=== PATIENT | female | born 1945 | race Caucasian/White ===

== ENCOUNTER 2018-03-14 08:48 | Outpatient (CLI) | payer MEDICARE, OTHER | END 2018-03-14 08:49 | disposition home or self-care (01) | LOC: BICMAMMO 08:48 | PROVIDERS: ATTEND Obstetrics & Gynecology | DX: Z12.31 Encounter for screening mammogram for malignant neoplasm of breast (principal); Z79.890 Hormone replacement therapy; M85.89 Other specified disorders of bone density and structure, multiple sites; R92.1 Mammographic calcification found on diagnostic imaging of breast; Z80.3 Family history of malignant neoplasm of breast | CPT/HCPCS: 77063; 77067; 77080 ==

== ENCOUNTER 2019-03-19 12:51 | Outpatient (CLI) | payer MEDICARE, OTHER ==
--- NOTE | 2019-03-19 14:15 | MMO ---
Bilateral MAMMO Bilat Screen [facility]. CLINICAL HISTORY: Patient is 73 years old and is seen for screening. The patient has no personal history of cancer. VIEWS: The views performed were: bilateral craniocaudal with tomosynthesis and bilateral mediolateral oblique with tomosynthesis. FILMS COMPARED: The present examination has been compared to prior imaging studies performed at [facility] on 01/29/2015, 02/17/2016, 03/07/2017 and 03/14/2018. MAMMOGRAM FINDINGS: There are scattered fibroglandular densities. There are no suspicious masses, suspicious calcifications, or new areas of architectural distortion. IMPRESSION: THERE IS NO MAMMOGRAPHIC EVIDENCE OF MALIGNANCY. A ROUTINE FOLLOW-UP MAMMOGRAM IN 1 YEAR IS RECOMMENDED. THE RESULTS OF THIS EXAM WERE SENT TO THE PATIENT. ACR BI-RADS Category 1 - Negative MAMMOGRAPHY NOTE: 1. A negative mammogram report should not delay a biopsy if a dominant of clinically suspicious mass is present. 2. Approximately 10% to 15% of breast cancers are not detected by mammography. 3. Adenosis and dense breasts may obscure an underlying neoplasm.
== END 2019-03-19 12:52 | disposition home or self-care (01) ==
LOC: BICMAMMO 12:51
PROVIDERS: ATTEND Obstetrics & Gynecology
DX: Z12.31 Encounter for screening mammogram for malignant neoplasm of breast (principal)
CPT/HCPCS: 77063; 77067

== ENCOUNTER 2020-03-25 13:19 | Outpatient (CLI) | payer MEDICARE, OTHER ==
--- NOTE | 2020-03-25 13:47 | MMO ---
Bilateral MAMMO Bilat Screen [facility]. CLINICAL HISTORY: Patient is 74 years old and is seen for screening. The patient has no family history of breast cancer. The patient has no personal history of cancer. VIEWS: The views performed were: bilateral craniocaudal with tomosynthesis; bilateral mediolateral oblique with tomosynthesis; and bilateral exaggerated craniocaudal. FILMS COMPARED: The present examination has been compared to prior imaging studies performed at [facility] on 02/17/2016, 03/07/2017, 03/14/2018 and 03/19/2019. This study has been interpreted with the assistance of computer-aided detection. MAMMOGRAM FINDINGS: There are scattered fibroglandular densities. There is an asymmetry seen in the CC view only seen in the inner region of the left breast. In the right breast, there are no suspicious masses, calcifications or areas of architectural distortion. IMPRESSION: ASYMMETRY IN THE LEFT BREAST REQUIRES ADDITIONAL EVALUATION. RECOMMEND DIAGNOSTIC MAMMOGRAM. ULTRASOUND MAY ALSO PROVE USEFUL AT RECALL. THE RESULTS OF THIS EXAM WERE SENT TO THE PATIENT. ACR BI-RADS Category 0 - Incomplete: Need additional imaging evaluation. [facility] will notify the patient of the need for additional imaging services. MAMMOGRAPHY NOTE: 1. A negative mammogram report should not delay a biopsy if a dominant of clinically suspicious mass is present. 2. Approximately 10% to 15% of breast cancers are not detected by mammography. 3. Adenosis and dense breasts may obscure an underlying neoplasm. Reported by: JOSE LUIS GAMEZ MD Electonically Signed: [id number]
== END 2020-03-25 13:20 | disposition home or self-care (01) ==
LOC: BICMAMMO 13:19
PROVIDERS: ATTEND Obstetrics & Gynecology
DX: Z12.31 Encounter for screening mammogram for malignant neoplasm of breast (principal); N64.89 Other specified disorders of breast
CPT/HCPCS: 77063; 77067

== ENCOUNTER 2020-03-28 14:34 | Outpatient (CLI) | payer MEDICARE, OTHER ==
--- NOTE | 2020-03-28 16:12 | MMO ---
Left Breast MAMMO Unilat Diag [facility]. CLINICAL HISTORY: Patient is 74 years old and is seen for additional evaluation requested at current screening. The patient has no family history of breast cancer. The patient has no personal history of cancer. VIEWS: The views performed were: left craniocaudal spot compression with tomosynthesis; left mediolateral oblique spot compression with tomosynthesis; and left mediolateral with tomosynthesis. FILMS COMPARED: The present examination has been compared to prior imaging studies performed at [facility] on 03/14/2018, 03/19/2019, 03/25/2020 and 03/28/2020. This study has been interpreted with the assistance of computer-aided detection. MAMMOGRAM FINDINGS: There are scattered fibroglandular densities. There is a mass measuring 4 millimeters seen in the middle upper-inner region of the left breast. A definite ultrasound correlate was not seen. Please refer to ultrasound report. IMPRESSION: MASS IN THE LEFT BREAST REQUIRES ADDITIONAL EVALUATION. BREAST MRI IS RECOMMENDED. THE RESULTS OF THIS EXAM WERE SENT TO THE PATIENT. ACR BI-RADS Category 0 - Incomplete: Need additional imaging evaluation. [facility] will notify the patient of the need for additional imaging services. MAMMOGRAPHY NOTE: 1. A negative mammogram report should not delay a biopsy if a dominant of clinically suspicious mass is present. 2. Approximately 10% to 15% of breast cancers are not detected by mammography. 3. Adenosis and dense breasts may obscure an underlying neoplasm. Reported by: RUTH OLIVO MD Electonically Signed: [id number]
--- NOTE | 2020-03-28 20:48 | ULT ---
LEFT BREAST ULTRASOUND: 03/28/20 HISTORY: 4 mm nodular density seen left breast in the inner and perhaps slightly upper left breast. Difficult to localize on the ML or MLO projections but lesion has slightly ill-defined borders and of increased density on the CC view. Real time imaging of the left breast was performed initially at the 6 o'clock position left breast. A 6 x 7 mm cyst was identified. I was not satisfied with this being a definite correlate to the mammo graphic finding and this was discussed with the patient. I felt that a cyst aspiration would be neede d to confirm that the two densities are the same. Later as I was able to re-review the mammogram imag es, I actually found a correlate to this cyst on the mammogram and therefore a cyst aspiration is not required as this density is not the density seen on mammogram. Real time imaging of the remainder of the inner aspect of the breast by myself failed to show any def inite ultrasound correlate to the mammographic finding. The mammographic finding had somewhat worriso me features on the CC projection, although much more equivocal on the ML or MLO views. I still feel t hat a six month follow-up is not adequate and recommend breast MRI. IMPRESSION: 1. BIRADS 0: Incomplete: Need Additional Imaging Evaluation and/or Prior Mammograms for Compari son. Further evaluation with MRI is recommended of the left breast finding. 2. As discussed above, initially I recommended cyst aspiration to the patient but after re-revie wing the films, this will not be needed. We will attempt to contact the patient as the department is closed today.
== END 2020-03-28 14:35 | disposition home or self-care (01) ==
LOC: BICMAMMO 14:34
PROVIDERS: ATTEND Obstetrics & Gynecology
DX: R92.8 Other abnormal and inconclusive findings on diagnostic imaging of breast (principal); N63.20 Unspecified lump in the left breast, unspecified quadrant
CPT/HCPCS: 76642; 77065; G0279

== ENCOUNTER 2020-04-09 09:35 | Outpatient (CLI) | payer MEDICARE, OTHER ==
--- NOTE | 2020-04-09 13:06 | MRI ---
EXAM: MRI of the breasts without and with contrast HISTORY: Lump in the left breast. Asymmetry in the upper inner left breast on mammography COMPARISON : Mammogram and ultrasound 03/28/2020; mammograms 03/25/2020, 06/19/2019, 03/14/2018, 03/07/2017, 02/17/2016, 01/29/2015 TECHNIQUE: Multiplanar multisequence MR images were obtained of the breasts without and with IV contr ast. 3-D MIP reformats and contrast enhancement curves were generated on a [employer] workstation. FINDINGS: Scattered fibroglandular breast tissue is seen. Minimal background parenchymal enhancement is seen. There is a 3 mm well-circumscribed area of type I gradual enhancement in the upper aspect of the left breast. This is approximately 6.8 cm from the nipple and is much more posterior in the breast than the asymmetry was seen on mammography. No suspicious areas of enhancement are seen in either breast. No axillary adenopathy is seen. No internal mammary lymph nodes are identified. The visualized liver is unremarkable. The visualized bones are unremarkable. IMPRESSION: No suspicious enhancement is seen in the left breast in the region that the asymmetry was seen on binh mography. In addition, when reviewing the mammograms, this asymmetry has been present dating back to 2014. BI-RADS Category 2-benign findings. Annual screening mammography is recommended.
== END 2020-04-09 09:36 | disposition home or self-care (01) ==
LOC: BICMRI 09:35
PROVIDERS: ATTEND Obstetrics & Gynecology
DX: R92.8 Other abnormal and inconclusive findings on diagnostic imaging of breast (principal); N63.20 Unspecified lump in the left breast, unspecified quadrant; N64.89 Other specified disorders of breast
CPT/HCPCS: 82565; C8908

== ENCOUNTER 2020-05-12 07:16 | Outpatient (CLI) | payer MEDICARE, OTHER ==
[2020-05-12 14:11] LABS: #Eosinphils 0.2 thou/uL (0.0-0.7); #Lymphocytes 1.5 thou/uL (1.20-3.40); #Monocytes 0.3 thou/uL (0.11-0.59); #Neutrophils 3.3 thou/uL (1.40-6.50); %Basophils 0.9 % (0.0-1.0); %Eosinophils 2.9 % (0.0-10.0); %Lymphocytes 27.8 % (21.0-51.0); %Monocytes 6.4 % (0.0-10.0); Hemoglobin 13.7 g/dL (12.0-16.0); Mean Corpuscular HGB CONC 32.7 g/dL (32.0-36.0); Mean Corpuscular Hemoglobin 31.1 pg (27.0-31.0); Mean Corpuscular Volume 95.3 fL (78.0-98.0); Mean Platelet Volume 9.4 fL (7.4-10.4); Platelet Count 200 thou/uL (130-400); RBC Distribution Width 11.4 % (11.5-14.5); Red Blood Cell (RBC) Count 4.39 mill/uL (4.20-5.40); White Blood Cell (WBC) Count 5.3 thou/uL (4.8-10.8)
[2020-05-13 12:06] LABS: SARS-CoV-2 MS2 Positive; SARS-CoV-2 N Gene Negative; SARS-CoV-2 S Gene Negative; SARS-CoV-2 by NAA Not Detected (NotDetected); SARS-CoV-2 orf1ab Negative
== END 2020-05-12 07:17 | disposition home or self-care (01) ==
LOC: LABBT 07:16
PROVIDERS: ATTEND Surgery
DX: Z01.818 Encounter for other preprocedural examination (principal); Z11.59 Encounter for screening for other viral diseases; N63.20 Unspecified lump in the left breast, unspecified quadrant
CPT/HCPCS: 85025; 93005; U0003; 87635; 93010

== ENCOUNTER 2020-05-16 06:53 | Day surgery (SDC) | payer MEDICARE, OTHER ==
[2020-05-09 15:44] VITALS: BMI 21.5
[2020-05-16 08:52] LABS: Anion Gap 10 mmol/L (10-20); BUN (Urea Nitrogen) 14 mg/dL (9.8-20.1); Calc. Creatinine Clearance 50 mL/min (70-130); Calcium 8.9 mg/dL (7.8-10.44); Carbon Dioxide 28 mmol/L (23-31); Chloride 106 mmol/L (98-107); Estimated GFR-MDRD 71; Glucose 92 mg/dL (83-110); Potassium 3.8 mmol/L (3.5-5.1); Sodium 140 mmol/L (136-145)
[2020-05-16] MEDS ORDERED: EPHEDRINE 25 MG/5 ML SYRINGE ONE (08:57)
[2020-05-16] MEDS ORDERED: Ondansetron PF 4 MG/2 ML Vial ONE (08:57)
[2020-05-16] MEDS ORDERED: PROPOFOL 200 MG/20 ML VIAL ONE (08:57)
[2020-05-16] MEDS ORDERED: Lidocaine 1% PF 5 ML VIAL ONE (08:57)
--- NOTE | 2020-05-16 09:07 | MMO ---
Needle localization left breast mass mammographic guided HISTORY: Left breast mass. FINDINGS: After explaining the procedure and answering all questions, the small hyperdense mass at th e superior medial aspect of the left breast was visualized. Sterile technique, buffered local anesthesia, mammographic guidance, and a superior approach were use d to carefully advance a 19-gauge [place] needle to the mass. Guidewire deployed and needle secured. Final images were obtained and marked, showing the tip of the needle immediately deep to the mass. Patient tolerated the procedure well and was transferred to day surgery in good condition. IMPRESSION : Technically successful needle localization left breast mass.
[2020-05-16] MEDS ORDERED: Fentanyl 100 MCG/2 ML VIAL ONE ×2 (09:52→11:25)
[2020-05-16] MEDS ORDERED: Bupivacaine 0.25% HCL 30 ML VIAL ONE (10:06)
[2020-05-16] MEDS ORDERED: Lidocaine 1% w/Epinephrine 1:100K 20 ML VIAL ONE (10:06)
[2020-05-16] MEDS ORDERED: Levofloxacin 500 mg/D5W 100 ml Premix Bag ONE (11:34)
--- NOTE | 2020-05-19 11:04 | OP ---
DATE OF PROCEDURE: 05/16/2020 PREOPERATIVE DIAGNOSIS: Left breast mass, not amenable to stereotactic biopsy. POSTOPERATIVE DIAGNOSIS: Left breast mass, not amenable to stereotactic biopsy. PROCEDURE PERFORMED: Left breast mass excision after needle localization. ANESTHESIA: General. ESTIMATED BLOOD LOSS: Minimal. COMPLICATIONS: None. SPECIMEN: Left breast mass, marked with 2 short superior, 1 long lateral. Sent to Path for final diagnosis. TECHNIQUE: The patient had undergone preop placement of needle localization wire to the area of abnormality in the left breast. Left breast was then prepped and draped in a sterile fashion. Incision was made near entrance of the needle localization wire. Flaps were raised superior medially and inferior laterally around the end of the needle localization wire. The specimen was marked and sent to specimen x-ray, which revealed the area to be in the specimen. It was then sent for final pathology. The wound was irrigated. Local anesthetic was applied. The wound was closed using 3-0 Vicryl, 4-0 Monocryl, and Dermabond. The patient was sent to Recovery in stable condition. All instrument counts, needle counts, and lap counts were correct. Job ID: [id number]
== END 2020-05-16 13:45 | disposition home or self-care (01) ==
LOC: SDC 06:53
PROVIDERS: ATTEND Surgery
PROC: 0HBU0ZZ Excision of Left Breast, Open Approach (ICD-10-PCS; principal; 2020-05-16)
DX: C50.212 Malignant neoplasm of upper-inner quadrant of left female breast (principal); M81.0 Age-related osteoporosis without current pathological fracture; D47.2 Monoclonal gammopathy; J30.9 Allergic rhinitis, unspecified; Z79.82 Long term (current) use of aspirin; Z79.899 Other long term (current) drug therapy; Z88.0 Allergy status to penicillin
CPT/HCPCS: 19281; 36415; 76098; 80048; 88307; 88341; 88342; J1956; J2405; J2704; J3010; S0020

== ENCOUNTER 2020-06-06 07:49 | Outpatient (CLI) | payer MEDICARE, OTHER ==
[2020-06-06 11:45] LABS: #Basophils 0.1 thou/uL (0.0-0.2); #Eosinphils 0.2 thou/uL (0.0-0.7); #Lymphocytes 1.3 thou/uL (1.20-3.40); #Monocytes 0.3 thou/uL (0.11-0.59); #Neutrophils 2.5 thou/uL (1.40-6.50); %Basophils 1.6 % (0.0-1.0); %Eosinophils 4.3 % (0.0-10.0); %Lymphocytes 29.3 % (21.0-51.0); %Monocytes 7.6 % (0.0-10.0); %Neutrophils 57.2 % (42.0-75.0); Hemoglobin 13.1 g/dL (12.0-16.0); Mean Corpuscular HGB CONC 33.3 g/dL (32.0-36.0); Mean Corpuscular Hemoglobin 31.2 pg (27.0-31.0); Mean Corpuscular Volume 93.6 fL (78.0-98.0); Mean Platelet Volume 9.4 fL (7.4-10.4); Platelet Count 202 thou/uL (130-400); RBC Distribution Width 11.1 % (11.5-14.5); White Blood Cell (WBC) Count 4.3 thou/uL (4.8-10.8)
[2020-06-06 13:02] LABS: Anion Gap 14 mmol/L (10-20); BUN (Urea Nitrogen) 15 mg/dL (9.8-20.1); Calc. Creatinine Clearance 0 mL/min (70-130); Calcium 9.2 mg/dL (7.8-10.44); Carbon Dioxide 26 mmol/L (23-31); Chloride 103 mmol/L (98-107); Estimated GFR-MDRD 72; Glucose 85 mg/dL (83-110); Sodium 139 mmol/L (136-145)
[2020-06-06 17:04] LABS: SARS-CoV-2 MS2 Positive; SARS-CoV-2 N Gene Negative; SARS-CoV-2 S Gene Negative; SARS-CoV-2 by NAA Not Detected (NotDetected); SARS-CoV-2 orf1ab Negative
== END 2020-06-06 07:50 | disposition home or self-care (01) ==
LOC: LABBT 07:49 → EDSTATUS 15:09
PROVIDERS: ATTEND Surgery
DX: Z01.812 Encounter for preprocedural laboratory examination (principal); N63.20 Unspecified lump in the left breast, unspecified quadrant; Z20.828 Contact with and (suspected) exposure to other viral communicable diseases
CPT/HCPCS: 80048; 85025; U0003; 87635

== ENCOUNTER 2020-06-11 07:30 | Day surgery (SDC) | payer MEDICARE, OTHER ==
[2020-06-05 11:46] VITALS: BMI 20.6
--- NOTE | 2020-06-11 09:12 | NM ---
LYMPHOSCINTIGRAPHY LEFT BREAST: DATE: 06/11/2020 : 75-year-old female with malignant neoplasm of unspecified site of leftfemale breast. TECHNIQUE: Signed informed consent obtained. Alcohol swabbing four-quadrant left periareolar distribution. Using 30-gauge needle, buffered lidocaine was applied to those 4 quadrants. Next, using 4 separate 30-gauge needles in 4 separate tuberculin syringes, a total of 0.4 mCi of technetium 99m sulfur collo id was injected into those same 4 periareolar quadrants. Immediate anterior and lateral scintigraphic images obtained of the chest. Patient tolerated procedure well. No complications. FINDINGS: There is uptake in sentinel left axillary lymph node. IMPRESSION: Successful left breast lymphoscintigraphy
[2020-06-11] MEDS ORDERED: PROPOFOL 200 MG/20 ML VIAL ONE (10:10)
[2020-06-11] MEDS ORDERED: Ondansetron PF 4 MG/2 ML Vial ONE (10:10)
[2020-06-11] MEDS ORDERED: Glycopyrrolate 0.2 MG/ML 5 ML SYRINGE ONE (10:10)
[2020-06-11] MEDS ORDERED: EPHEDRINE 25 MG/5 ML SYRINGE ONE (10:10)
[2020-06-11] MEDS ORDERED: Dexamethasone 20 MG/5 ML VIAL ONE (10:10)
[2020-06-11] MEDS ORDERED: Lidocaine 1% PF 5 ML VIAL ONE (10:10)
[2020-06-11] MEDS ORDERED: Levofloxacin 500 mg/D5W 100 ml Premix Bag ONE (11:38)
[2020-06-11] MEDS ORDERED: Lidocaine 1% w/Epinephrine 1:100K 20 ML VIAL ONE (11:46)
[2020-06-11] MEDS ORDERED: Bupivacaine 0.25% HCL 30 ML VIAL ONE (11:46)
[2020-06-11] MEDS ORDERED: Fentanyl 100 MCG/2 ML VIAL ONE (11:46)
[2020-06-11] MEDS ORDERED: Methylene Blue 50 MG/10 ML AMPUL ONE (11:47)
[2020-06-11] MEDS ORDERED: HYDROcodone/Acetaminophen 5/325 mg Tablet ONE (13:32)
--- NOTE | 2020-06-11 16:55 | OP ---
DATE OF PROCEDURE: 06/11/2020 PREOPERATIVE DIAGNOSIS: Left breast cancer. POSTOPERATIVE DIAGNOSIS: Left breast cancer. PROCEDURE PERFORMED: Left deep axillary node biopsy (sentinel node protocol). ANESTHESIA: General. ESTIMATED BLOOD LOSS: Minimal. COMPLICATIONS: None. SPECIMENS: [place] node. TECHNIQUE: The patient was taken to the operating room and laid supine on the operating room table. After general anesthetic was obtained, 5 mL of methylene blue dye was infiltrated on the left nipple, massaged for 10 minutes. The left chest, breast, and arm were all prepped and draped in a sterile fashion. An incision was made along the inferior hairline of the left axilla. The clavipectoral fascia was entered. Neoprobe was used to find an area of increased uptake. There was minimal blue dye in the area. [place] node counts were high into the 900s. The background count was less than 40. The sentinel node was removed and sent to Path for final diagnosis. Again, background counts were low. No residual activity in the axilla after removal. The wound was irrigated. Local anesthetic was applied. The wound was closed using 3-0 Vicryl, 4-0 Monocryl, and Dermabond. The patient was sent to Recovery in stable condition. All instrument counts, needle counts, and lap counts were correct. Job ID: [id number]
== END 2020-06-11 14:21 | disposition home or self-care (01) ==
LOC: SDC 07:30
PROVIDERS: ATTEND Surgery
PROC: 07B60ZX Excision of Left Axillary Lymphatic, Open Approach, Diagnostic (ICD-10-PCS; principal; 2020-06-11)
DX: C50.912 Malignant neoplasm of unspecified site of left female breast (principal); M81.0 Age-related osteoporosis without current pathological fracture; J30.9 Allergic rhinitis, unspecified; Z17.0 Estrogen receptor positive status [ER+]; Z79.82 Long term (current) use of aspirin; Z79.899 Other long term (current) drug therapy; Z88.0 Allergy status to penicillin
CPT/HCPCS: 38525; 78195; A9541; Q9968; 88307; 88342; J1100; J1956; J2405; J2704; J3010; S0020

== ENCOUNTER 2020-08-27 08:22 | Outpatient (CLI) | payer MEDICARE, OTHER ==
--- NOTE | 2020-08-27 08:54 | BD ---
EXAM: DEXA bone density examination HISTORY: Menopausal osteoporosis screening COMPARISON: None FINDINGS: L1--bone mineral density 0.777 g/sq cm; T score -1.9. Z score 0.3 L2--bone mineral density 0.829 g/sq cm; T score -1.8; Z score 0.6 L3--bone mineral density 0.974 g/sq cm; T score -1.0; Z score 1.6 L4--bone mineral density 0.919 g/sq cm; T score -1.3, Z score 1.4 Total L1-L4--bone mineral density 0.878 g/sq cm; T score -1.5, Z score 0.9 Left femoral neck--bone mineral density0.598; T score -2.3, Z score -0.1 Total proximal left femur--bone mineral density 0.774; T score -1.4, Z score 0.5 This patient has a 10 year WHO fracture risk of a major osteoporotic fracture of 21% and of a hip fra cture of 5.9%. IMPRESSION: Based on the WHO criteria, the patient's bone mineral density is consideredOsteopenic. T he patient is at moderate risk for fracture.
== END 2020-08-27 08:23 | disposition home or self-care (01) ==
LOC: BICMAMMO 08:22
PROVIDERS: ATTEND Internal Medicine Hematology & Oncology
DX: N95.8 Other specified menopausal and perimenopausal disorders (principal); C50.212 Malignant neoplasm of upper-inner quadrant of left female breast; M85.89 Other specified disorders of bone density and structure, multiple sites
CPT/HCPCS: 77080

== ENCOUNTER 2021-04-21 10:11 | Outpatient (CLI) | payer MEDICARE, OTHER | END 2021-04-21 10:12 | disposition home or self-care (01) | LOC: BICMAMMO 10:11 | PROVIDERS: ATTEND Internal Medicine Hematology & Oncology | DX: Z08 Encounter for follow-up examination after completed treatment for malignant neoplasm (principal); Z85.3 Personal history of malignant neoplasm of breast | CPT/HCPCS: 77066; G0279 ==

== ENCOUNTER 2021-08-27 09:21 | Outpatient (CLI) | payer MEDICARE, OTHER | END 2021-08-27 09:22 | disposition home or self-care (01) | LOC: BICMAMMO 09:21 | PROVIDERS: ATTEND Internal Medicine Hematology & Oncology | DX: M85.89 Other specified disorders of bone density and structure, multiple sites (principal); C50.212 Malignant neoplasm of upper-inner quadrant of left female breast | CPT/HCPCS: 77080 ==

== ENCOUNTER 2022-09-20 09:42 | Outpatient (CLI) | payer MEDICARE, OTHER | END 2022-09-20 09:43 | disposition home or self-care (01) | LOC: BICMAMMO 09:42 | PROVIDERS: ATTEND Internal Medicine Hematology & Oncology | DX: Z08 Encounter for follow-up examination after completed treatment for malignant neoplasm (principal); M85.89 Other specified disorders of bone density and structure, multiple sites; Z85.3 Personal history of malignant neoplasm of breast | CPT/HCPCS: 77066; 77080; G0279 ==

== ENCOUNTER 2023-09-22 13:18 | Outpatient (CLI) | payer MEDICARE | END 2023-09-22 13:19 | disposition home or self-care (01) | LOC: BICMAMMO 13:18 | PROVIDERS: ATTEND Internal Medicine Hematology & Oncology | DX: Z08 Encounter for follow-up examination after completed treatment for malignant neoplasm (principal); Z13.820 Encounter for screening for osteoporosis; M81.0 Age-related osteoporosis without current pathological fracture; M85.851 Other specified disorders of bone density and structure, right thigh; Z85.3 Personal history of malignant neoplasm of breast | CPT/HCPCS: 77066; 77080; G0279 ==

== ENCOUNTER 2023-11-07 10:01 | Day surgery (SDC) | payer MEDICARE ==
[~2023-11-07 10:01] MED LIST: ROMOSOZUMAB-AQQG 210 MG/2.34 ML SYR SQ SCH
== END 2023-11-07 10:30 | disposition home or self-care (01) ==
LOC: ONC/OP 10:01
PROVIDERS: ATTEND Internal Medicine
DX: M81.0 Age-related osteoporosis without current pathological fracture (principal)
CPT/HCPCS: J3111

== ENCOUNTER 2023-11-28 09:53 | Day surgery (SDC) | payer MEDICARE ==
[2023-11-28 10:27] VITALS: BP 146/67; TEMP 98
[2023-11-28] MEDS: ROMOSOZUMAB-AQQG 210 MG/2.34 ML SYR SQ SCH (10:39)
== END 2023-11-28 11:06 | disposition home or self-care (01) ==
LOC: ONC/OP 09:53
PROVIDERS: ATTEND Internal Medicine
DX: M81.0 Age-related osteoporosis without current pathological fracture (principal); Z88.0 Allergy status to penicillin
CPT/HCPCS: 96372; J3111

== ENCOUNTER 2024-09-25 08:36 | Outpatient (CLI) | payer MEDICARE | END 2024-09-25 08:37 | disposition home or self-care (01) | LOC: BICMAMMO 08:36 | PROVIDERS: ATTEND Nurse Practitioner Family | DX: Z08 Encounter for follow-up examination after completed treatment for malignant neoplasm (principal); M85.89 Other specified disorders of bone density and structure, multiple sites; M81.0 Age-related osteoporosis without current pathological fracture; Z85.3 Personal history of malignant neoplasm of breast | CPT/HCPCS: 77066; 77080; G0279 ==

== ENCOUNTER 2025-09-26 09:54 | Outpatient (CLI) | payer MEDICARE | END 2025-09-26 09:55 | disposition home or self-care (01) | LOC: BICMAMMO 09:54 | PROVIDERS: ATTEND Internal Medicine | DX: Z12.31 Encounter for screening mammogram for malignant neoplasm of breast (principal); Z80.3 Family history of malignant neoplasm of breast; Z86.000 Personal history of in-situ neoplasm of breast; Z98.890 Other specified postprocedural states | CPT/HCPCS: 77063; 77067 ==